=== PATIENT | female | born 1990 | race Caucasian/White ===

== ENCOUNTER 2019-02-04 23:54 | Emergency (ER) | payer SELFPAY ==
[~2019-02-04] VITALS: Ht 170.2 cm; Wt 101.8 kg
[2019-02-05 00:02] VITALS: BP 138/73; PULSE 87; RESP 18; Ht 170.2 cm; Wt 101.8 kg
[2019-02-05] MEDS ORDERED: ONDANSETRON (ODT) 4 MG TAB ODT STA (00:44)
--- NOTE | 2019-02-05 00:44 | ERD ---
ER Documentation Chief Complaint Chief Complaint epigastric pain x 4 hours HPI This is a 28-year-old female presents emergency department with complaints of epigastric pain that started 4 hours prior to arrival here in the emergency department. Nauseated with no vomiting. LMP: Last month. A0. Denies headache, head injury, loss of consciousness, dizziness, neck pain, neck stiffness, throat pain, difficulty swallowing, difficulty breathing lying flat, shoulder pain, chest pain, back pain, vomiting, constipation, diarrhea, urinary symptoms, or possibility being , loss of bowel and bladder control, trauma, injury, falls, difficulty walking due to pain, numbness or tingling sensation, calf pain, recent travel, recent major surgery in the last 3 weeks, calf pain, recent long travel, recent exposure to any illness, recent antibiotic use in the last 3 months, fever, chills, seizures. Past medical history: Denies. Surgical history: Denies. Social: Denies smoking, use of alcoholic beverages, use of illegal drugs. ROS All systems reviewed and are negative except as per history of present illness. Allergies Allergies: Coded Allergies: No Known Drug Allergies (Verified Allergy, Unknown, 02/05/19) PMhx/Soc Medical and Surgical Hx: pt denies Surgical Hx Hx Miscellaneous Medical Probl: Yes (GERD) Hx Alcohol Use: Yes Hx Substance Use: No Hx Tobacco Use: Yes Smoking Status: Current every day smoker Physical Exam Vitals Vital Signs Date Temp Pulse Resp B/P (MAP) Pulse Ox O2 O2 Flow FiO2 Time Delivery Rate 02/05/19 98.2 87 18 138/73 100 00:02 (94) Physical Exam Const: No acute distress Head: Atraumatic Eyes: Normal Conjunctiva. Color appears normal for ethnicity. ENT: Normal External Ears, Nose and Mouth. Neck: Full range of motion. No meningismus. Resp: Clear to auscultation bilaterally Cardio: Regular rate and rhythm, no murmurs Abd: Soft, non tender, non distended. Normal bowel sounds. Negative Marcelino sign. Negative [place] sign (heel jar test). Negative psoas sign. Negative Rovsing sign. Able to jump 10 times without developing lower abdominal pain. No CVA tenderness. Ambulatory with steady gait and without pain to abdomen. Skin: No petechiae or rashes. Color appears normal for ethnicity. No skin tenting. No signs of severe dehydration. Back: No midline or flank tenderness Ext: No cyanosis, or edema Neur: Awake and alert. No neurological deficits. Psych: Normal Mood and Affect Result Diagram: 02/05/19 01002/05/19 0101 Results 24 hrs Laboratory Tests Test 02/05/19 01:01 02/05/19 01:16 White Blood Count 8.3 10^3/ul Red Blood Count 3.85 10^6/ul Hemoglobin 11.1 g/dl Hematocrit 34.3 % Mean Corpuscular Volume 89.1 fl Mean Corpuscular Hemoglobin 28.8 pg Mean Corpuscular Hemoglobin Concent 32.4 g/dl Red Cell Distribution Width 14.5 % Platelet Count 308 10^3/UL Mean Platelet Volume 10.3 fl Immature Granulocytes % 0.200 % Neutrophils % 61.4 % Lymphocytes % 25.2 % Monocytes % 7.2 % Eosinophils % 5.6 % Basophils % 0.4 % Nucleated Red Blood Cells % 0.0 /100WBC Immature Granulocytes # 0.020 10^3/ul Neutrophils # 5.1 10^3/ul Lymphocytes # 2.1 10^3/ul Monocytes # 0.6 10^3/ul Eosinophils # 0.5 10^3/ul Basophils # 0.0 10^3/ul Nucleated Red Blood Cells # 0.0 10^3/ul Prothrombin Time 11.8 Sec Prothrombin Time Ratio 0.9 INR International Normalized Ratio 0.86 Activated Partial Thromboplast Time 29.4 Sec Urine Color YELLOW Urine Clarity SLIGHTLY CLOUDY Urine pH 6.0 Urine Specific Perkins 1.021 Urine Ketones NEGATIVE mg/dL Urine Nitrite NEGATIVE mg/dL Urine Bilirubin NEGATIVE mg/dL Urine Urobilinogen NEGATIVE mg/dL Urine Leukocyte Esterase TRACE James/ul Urine Microscopic RBC 44 /HPF Urine Microscopic WBC 5 /HPF Urine Squamous Epithelial Cells FEW /HPF Urine Bacteria FEW /HPF Urine Hemoglobin 3+ mg/dL Urine Glucose NEGATIVE mg/dL Urine Total Protein NEGATIVE mg/dl Sodium Level 142 mmol/L Potassium Level 3.9 mmol/L Chloride Level 104 mmol/L Carbon Dioxide Level 29 mmol/L Anion Gap 9 Blood Urea Nitrogen 16 mg/dl Creatinine 0.96 mg/dl Est Glomerular Filtrat Rate mL/min > 60 mL/min Glucose Level 108 mg/dl Calcium Level 9.1 mg/dl Total Bilirubin 0.3 mg/dl Direct Bilirubin 0.00 mg/dl Indirect Bilirubin 0.3 mg/dl Aspartate Amino Transf (AST/SGOT) 23 IU/L Alanine Aminotransferase (ALT/SGPT) 20 IU/L Alkaline Phosphatase 79 IU/L Troponin I < 0.012 ng/ml B-Type Natriuretic Peptide 28 PG/ML Total Protein 7.6 g/dl Albumin 4.2 g/dl Globulin 3.40 g/dl Albumin/Globulin Ratio 1.23 Amylase Level 81 U/L Lipase 86 U/L POC Beta HCG, Qualitative NEGATIVE Current Medications Medications Dose Sig/Mer Start Time Status Last (Trade) Ordered Route PRN Stop Time Admin Dose Reason Admin Ondansetron 4 mg ONCE STAT 02/05/19 DC HCl (Zofran ODT 00:44 Odt) 02/05/19 00:49 Famotidine 40 mg ONCE ONCE 02/05/19 DC (Pepcid) PO 01:00 02/05/19 01:01 40 ml ONCE ONCE 02/05/19 DC Miscellaneous PO 01:00 Medication 02/05/19 01:01 (Gi Cocktail (2)) Procedures/MDM Diagnostic tests: POC urine : Urinalysis: Reviewed. Culture urine: Sent. Blood works: Reviewed. Gallbladder ultrasound: No cholelithiasis. No biliary dilatation. No free fluid. Renal ultrasound: Treatment: GI cocktail. Zofran. Pepcid. Re-evaluation: Denies chest pain, back pain, abdominal pain. Negative Marcelino sign but negative [place] sign (heel jar test). Negative psoas sign. Negative Rovsing sign. Able to jump 10 times without developing lower abdominal pain. Differential diagnosis I have low suspicion for sepsis, pancreatitis, cholecystitis, diverticulitis, bowel obstruction, nephrolithiasis, pyelonephritis, septic stones. Final diagnosis: Epigastric pain. Patient eloped at around 03:10. Patient was last seen at the waiting area without any distress/pain/discomfort. Departure Diagnosis: Primary Impression: Abdominal pain Condition: Stable Additional Instructions: RUFUS PALAFOX Feb 05, 2019 00:44
[2019-02-05] MEDS ORDERED: FAMOTIDINE 20 MG TAB PO ONE (01:00)
[2019-02-05] MEDS ORDERED: LIDOCAINE/MYLANTA 40 ML BTL PO ONE (01:00)
== END 2019-02-05 02:30 | disposition left against medical advice (07) ==
LOC: FTE 23:54
DX: R10.13 Epigastric pain (principal); F17.210 Nicotine dependence, cigarettes, uncomplicated
CPT/HCPCS: 76705; 80053; 81001; 81025; 82150; 83690; 83880; 84484; 85025; 85610; 85730; 87086